=== PATIENT | female | born 1935 | race Two or more races ===

== ENCOUNTER 2019-01-30 10:03 | Emergency (ER) | payer OTHER ==
[~2019-01-30] VITALS: Ht 157.5 cm; Wt 49.9 kg
[2019-01-30] MEDS ORDERED: ATORVASTATIN CA10 MG PO (10:32)
[2019-01-30] MEDS ORDERED: ZESTRIL10 M1 PO (10:33)
[2019-01-30] MEDS ORDERED: PLAVIX75 MG PO (13:18)
[2019-01-30] MEDS ORDERED: CHILDREN'S ASPI81 MG PO (13:18)
== END 2019-01-30 14:05 | disposition home or self-care (01) ==
LOC: ER 10:03
DX: R55 Syncope and collapse (principal)